=== PATIENT | male | born 1960 | race Caucasian/White ===

== ENCOUNTER → 2017-07-25 | Outpatient (CLI) | payer OTHER ==
[~2017-07-25] MED LIST: ENXP100I SC; FENO145T2 PO; LISI1TAB10 PO; NF-ESOM40C PO; OMG1KC PO; SRTR100T PO; TRM50T PO; VALS1TAB43 PO; WRF5T PO
== END ==
LOC: CARD 14:12
PROVIDERS: ATTEND Internal Medicine Interventional Cardiology
DX: I34.0 Nonrheumatic mitral (valve) insufficiency (principal)
CPT/HCPCS: 93306

== ENCOUNTER → 2019-04-29 | Outpatient (CLI) | payer OTHER | LOC: CARD 08:25 | PROVIDERS: ATTEND Internal Medicine Interventional Cardiology | DX: I08.3 Combined rheumatic disorders of mitral, aortic and tricuspid valves (principal); I10 Essential (primary) hypertension; Z95.2 Presence of prosthetic heart valve | CPT/HCPCS: 93306 ==

== ENCOUNTER → 2021-08-02 | Outpatient (CLI) | payer OTHER ==
[~2021-08-02] MED LIST changes: +REGADENOSON 0.4 MG/5 ML SYR (LEXISCAN) IV ONE
[2021-08-02] MEDS: CATHETER FLUSH 10 ML SYR IV PRN ×2 (11:57→13:28)
[2021-08-02 13:28] VITALS: BP 166/86
--- NOTE | 2021-08-02 15:53 | Cardiology Stress Test Report ---
Stress Test Report Date of Procedure/Referring: Date of Procedure: Aug 02, 2021 PCP Ijeoma Echeverria MD Admitting Physician Gracia Vasquez MD Indications: CP Baseline Blood Pressure: Blood Pressure Systolic: 166 Blood Pressure Diastolic: 86 Baseline Vitals Vital Signs Date Time Temp Pulse Resp B/P (MAP) Pulse Ox O2 Delivery O2 Flow Rate FiO2 08/02/21 13:28 68 166/86 (112) 98 Room Air Baseline EKG: Baseline EKG: NSR Summary After explaining the procedure to the patient, he signed a consent and then brought to the stress nuclear laboratory. Patient received 0.4 mg Lexiscan for stress test, ECG, heart rate and blood pressure were monitored continuously. Resting and stress dose of radio tracer were injected, imaging was acquired and reviewed in short axis, horizontal long axis and vertical long axis views. TID: 0.95 SSS: 3 SDS: 3 EF: 52 1. Patient tolerated Lexiscan well 2. Diaphragmatic attenuation with no significant ischemia or infarction on SPECT images 3. Normal left ventricular size, EF 50 to IJEOMA ECHEVERRIA MD Aug 02, 2021 15:53
== END ==
LOC: CARD 11:30
PROVIDERS: ATTEND Internal Medicine Cardiovascular Disease
DX: I35.1 Nonrheumatic aortic (valve) insufficiency (principal); I11.9 Hypertensive heart disease without heart failure; I25.10 Atherosclerotic heart disease of native coronary artery without angina pectoris; Z95.2 Presence of prosthetic heart valve
CPT/HCPCS: 78452; 93017; 93306; A9502